=== PATIENT | male | born 1990 | race Caucasian/White ===

== ENCOUNTER 2017-02-03 19:33 | Emergency (ER) | payer OTHER ==
[2017-02-03] MEDS ORDERED: diphenhydrAMINE INJ 50MG/ML VIAL (J1200) IM ONE (20:00)
[2017-02-03] MEDS ORDERED: HALOPERIDOL 5 MG/ML VIAL (J1630) IM ONE (20:00)
[2017-02-03] MEDS ORDERED: LORazepam 2 MG/ML VIAL (J2060) IM ONE (20:00)
[2017-02-03 21:20] LABS: MEAN CORPUSCULAR HEMOGLOBIN 30.6 pg (27.0-33.0); MEAN CORPUSCULAR HGB CONC 33.5 g/dl (32.0-36.5); MEAN CORPUSCULAR VOLUME 91.3 fl (80.0-96.0); RED CELL DISTRIBUTION WIDTH 13.8 % (11.5-14.5); WHITE BLOOD COUNT 6.1 K/mm3 (4.0-10.0)
--- NOTE | 2017-02-03 21:40 | REPUSA ---
CLINICAL HISTORY: AMS. TECHNIQUE: Multiple axial brain CT scan sections were obtained from base to vertex without contrast a dministration. COMMENTS: The study shows normal configuration of sella turcica. There are no intra or extra-axial collections. There is no mass effect or midline shift. There is no evidence of hematoma formation. No hydrocephal us is present. No abnormal calcifications are noted. No significant abnormalities are seen either in the posterior fossa or supratentorial compartment. The sinuses and mastoid air cells are patent. IMPRESSION: No evidence of acute intracranial pathology. Thank you for your kind referral of this patient.
[2017-02-03 21:44] LABS: ANION GAP 7 MEQ/L (8-16); BLOOD UREA NITROGEN 11 MG/DL (7-18); CARBON DIOXIDE LEVEL 28 MEQ/L (21-32); CHLORIDE LEVEL 108 MEQ/L (98-107); CREATININE FOR GFR 0.96 MG/DL (0.70-1.30); GLOMERULAR FILTRATION RATE > 60.0 (>60); GLUCOSE, FASTING 101 MG/DL (70-105); POTASSIUM SERUM 4.3 MEQ/L (3.5-5.1); SODIUM LEVEL 143 MEQ/L (136-145)
[2017-02-03 21:45] LABS: ALBUMIN 4.4 GM/DL (3.2-5.2); ALBUMIN/GLOBULIN RATIO 1.26 (1.00-1.93); ALKALINE PHOSPHATASE 52 U/L (45-117); ALT/SGPT 33 U/L (12-78); AST/SGOT 26 U/L (15-37); BILIRUBIN,DIRECT < 0.1 MG/DL (0.0-0.2); BILIRUBIN,TOTAL 0.2 MG/DL (0.2-1.0); CALCIUM LEVEL 8.6 MG/DL (8.5-10.1); TOTAL PROTEIN 7.9 GM/DL (6.4-8.2)
[2017-02-03 23:30] LABS: METHADONE URINE NEGATIVE (NEGATIVE)
[2017-02-04] MEDS ORDERED: BUSP15TA47 PO (10:33)
[2017-02-04 16:37] VITALS: BP 132/52
== END 2017-02-04 16:55 | disposition home or self-care (01) ==
LOC: M ED 19:33
DX: F43.0 Acute stress reaction (principal); F10.129 Alcohol abuse with intoxication, unspecified
CPT/HCPCS: 36415; 51701; 70450; 80048; 80076; 80307; 80320; 80329; 84443; 85027; 96372; 99285; J1200; J1630; J2060